=== PATIENT | male | born 1955 | race Caucasian/White ===

== ENCOUNTER 2020-12-24 08:11 | Day surgery (SDC) | payer OTHER, MEDICARE ==
[~2020-12-24] VITALS: Ht 177.8 cm; Wt 73.4 kg
[2020-12-24] MEDS ORDERED: GABA600T13 PO (08:38)
[2020-12-24] MEDS ORDERED: MELO-102 PO (08:38)
[2020-12-24] MEDS ORDERED: LIDOcaine 1% 30ml preserv. free vial SQ STA (08:55)
[2020-12-24 09:51] VITALS: BP 122/84
[2020-12-24 11:00] VITALS: BP 112/78
[2020-12-24 11:15] VITALS: BP 114/79
[2020-12-24 11:30] VITALS: BP 119/85
== END 2020-12-24 11:45 | disposition home or self-care (01) ==
LOC: SSTAY O 08:11
PROVIDERS: ATTEND Preventive Medicine Aerospace Medicine
DX: R19.09 Other intra-abdominal and pelvic swelling, mass and lump (principal); Z79.899 Other long term (current) drug therapy; Z98.890 Other specified postprocedural states; Z86.73 Personal history of transient ischemic attack (TIA), and cerebral infarction without residual deficits
CPT/HCPCS: 20206; 38505; 76942; 87070; 88305